=== PATIENT | male | born 1990 | race African-American/Black ===

== ENCOUNTER 2017-10-18 23:04 | Emergency (ER) | payer SELFPAY ==
[2017-10-18 23:33] LABS: POC GLUCOSE 99 mg/dL (70-99)
[2017-10-19] MEDS: ONDANSETRON PF 4 MG/2 ML VIAL. IV (00:45)
[2017-10-19] MEDS: IV NORMAL SALINE 1000ML BAG 1,000 ML IV (00:45)
== END 2017-10-19 02:38 | disposition home or self-care (01) ==
LOC: ER 10-19 02:38
DX: F10.120 Alcohol abuse with intoxication, uncomplicated (principal)
CPT/HCPCS: 82962; 96374; 99284-25; J2405; J7030